=== PATIENT | female | born 1940 | race Caucasian/White ===

== ENCOUNTER → 2018-07-07 | Outpatient (CLI) | payer MEDICARE ==
[~2018-07-07] MED LIST: LOSA25 PO
== END | disposition home or self-care (01) ==
LOC: LAB EV 15:20 → LAB SHORT 15:20
DX: N39.0 Urinary tract infection, site not specified (principal)
CPT/HCPCS: 87077; 87086; 87186

== ENCOUNTER 2019-07-25 00:07 | Emergency (ER) | payer MEDICARE ==
[~2019-07-25] VITALS: Ht 149.9 cm; Wt 61.2 kg
[2019-07-25] MEDS ORDERED: LOSARTAN-HCTZ1 EAC2 PO (00:31)
== END 2019-07-25 03:07 | disposition home or self-care (01) ==
LOC: ER 00:07
DX: R04.0 Epistaxis (principal); Z88.1 Allergy status to other antibiotic agents; Z88.5 Allergy status to narcotic agent; I10 Essential (primary) hypertension; Z79.899 Other long term (current) drug therapy
CPT/HCPCS: 99283

== ENCOUNTER → 2020-04-21 | Outpatient (CLI) | payer MEDICARE ==
[~2020-04-21] MED LIST changes: +LOSARTAN-HCTZ1 EAC2 PO
== END ==
LOC: LAB SRC 13:05 → LAB SHORT 13:05
DX: R31.9 Hematuria, unspecified (principal); R35.0 Frequency of micturition
CPT/HCPCS: 87077; 87086; 87186

== ENCOUNTER 2020-09-20 14:14 | Emergency (ER) | payer MEDICARE ==
[~2020-09-20] VITALS: Ht 160 cm; Wt 63.5 kg
[2020-09-20] MEDS ORDERED: LOSARTAN-HCTZ1 EAC6 PO (16:06)
== END 2020-09-20 16:39 | disposition home or self-care (01) ==
LOC: ER 14:14
DX: S09.90XA Unspecified injury of head, initial encounter (principal); M54.2 Cervicalgia; M25.512 Pain in left shoulder; I10 Essential (primary) hypertension; Z88.1 Allergy status to other antibiotic agents; Z88.5 Allergy status to narcotic agent; Z79.899 Other long term (current) drug therapy; W18.30XA Fall on same level, unspecified, initial encounter
CPT/HCPCS: 70450; 72125; 73020; 73030; 99284-25

== ENCOUNTER → 2020-11-28 | Outpatient (CLI) | payer MEDICARE ==
[~2020-11-28] MED LIST changes: +LOSARTAN-HCTZ1 EAC6 PO
[2020-11-28 18:37] LABS: Appearance, Urine Hazy (Clear); Bilirubin, Urine Neg (Neg); Blood, Urine 2+ (Neg); Color, Urine Yellow (P-Yellow); Glucose Qualitative, Urine Neg (Neg); Ketones, Urine Neg (Neg); Leukocyte Esterase, Urine 3+ (Neg); Nitrite, Urine Neg (Neg); Protein, Urine 2+ (Neg); Specific Gravity, Urine 1.015 (1.003-1.022); Urobilinogen, Urine NORM (Normal)
[2020-11-28 18:46] LABS: White Blood Cells, Urine 50-100 /hpf (0-5)
[2020-11-28 18:47] LABS: Bacteria Many /hpf; Squamous Epithelial Cells Few /hpf (Few)
== END | disposition home or self-care (01) ==
LOC: LAB 17:53 → LAB SHORT 17:53
PROVIDERS: Registered Nurse
DX: R30.9 Painful micturition, unspecified (principal)
CPT/HCPCS: 81001; 87086

== ENCOUNTER → 2023-09-09 | Outpatient (CLI) | payer MEDICARE | LOC: LAB 16:50 → LAB SHORT 16:50 | DX: N39.0 Urinary tract infection, site not specified (principal) | CPT/HCPCS: 87086 ==